=== PATIENT | female | born 1970 | race Native Hawaiian/Other Pacific Islander ===

== ENCOUNTER 2021-09-19 15:30 | Outpatient (CLI) | payer OTHER | END 2021-09-19 19:12 | disposition home or self-care (01) | LOC: MAMMO 15:30 | PROVIDERS: ATTEND Nurse Practitioner | DX: Z12.31 Encounter for screening mammogram for malignant neoplasm of breast (principal) ==

== ENCOUNTER 2021-10-11 15:06 | Outpatient (CLI) | payer OTHER | END 2021-10-11 19:16 | disposition home or self-care (01) | LOC: MAMMO 15:06 | PROVIDERS: ATTEND Nurse Practitioner | DX: R92.8 Other abnormal and inconclusive findings on diagnostic imaging of breast (principal) ==

== ENCOUNTER 2022-04-17 08:51 | Outpatient (CLI) | payer OTHER | END 2022-04-17 19:35 | disposition home or self-care (01) | LOC: MAMMO 08:51 | PROVIDERS: ATTEND Nurse Practitioner | DX: R92.8 Other abnormal and inconclusive findings on diagnostic imaging of breast (principal) ==

== ENCOUNTER 2022-11-20 08:23 | Outpatient (CLI) | payer OTHER | END 2022-11-20 19:18 | disposition home or self-care (01) | LOC: MAMMO 08:23 | PROVIDERS: ATTEND Nurse Practitioner | DX: Z12.31 Encounter for screening mammogram for malignant neoplasm of breast (principal); N64.59 Other signs and symptoms in breast | CPT/HCPCS: G0279 ==

== ENCOUNTER 2022-11-28 08:41 | Outpatient (CLI) | payer OTHER | END 2022-11-28 19:55 | disposition home or self-care (01) | LOC: US 08:41 | PROVIDERS: ATTEND Nurse Practitioner | DX: R92.8 Other abnormal and inconclusive findings on diagnostic imaging of breast (principal) ==